=== PATIENT | female | born 1960 | race Asian ===

== ENCOUNTER 2024-09-13 15:56 | Outpatient (REF) | payer OTHER, SELFPAY ==
--- NOTE | ~2024-09-13 | XR_ITS ---
EXAMINATION: XR SHOULDER, RIGHT CLINICAL INFORMATION: right shoulder pain COMPARISON: None available. TECHNIQUE: AP external rotation, Grashey, scapular Y, and axillary views of the right shoulder. FINDINGS: AC joint is intact and not degenerated. Glenohumeral joint is intact. There is a stellate high attenuating lesion centrally in the glenoid consistent with a benign bone island. No degenerative changes present. XR/XR shoulder RT min 2V IMPRESSION: Unremarkable right shoulder. Electronically signed by: Bernard Medina MD 09/13/2024 04:45 PM EDT
--- NOTE | ~2024-09-13 | XR_ITS ---
Exam: 4 view bilateral knees TECHNIQUE: AP standing, AP tunnel, lateral, and sunrise view lower extremity joint x-rays INDICATION: Osteoarthritis Prior: None FINDINGS: RIGHT KNEE: There is mild to moderate narrowing of the medial joint space. There is no soft tissue desiccation. There are moderate osteophytes along the medial joint line. There is lateral tilt of patella. There is a large osteophyte bulging of the medial trochlea. There is no joint effusion. LEFT KNEE: There is mild to moderate narrowing of the medial joint space. There is no soft tissue desiccation. There are moderate osteophytes along the medial joint line. There is lateral tilt of patella. There is a large osteophyte bulging of the medial trochlea. There is no joint effusion. XR/XR Knee Robbie 4V IMPRESSION: Medial compartment osteoarthritis with mild to moderate joint space narrowing, bilateral. Lateral patellar tilt, bilateral. Correlate for signs and symptoms of excessive lateral pressure syndrome (ELPS). Electronically signed by: Bernard Medina MD 09/13/2024 04:48 PM EDT
== END 2024-09-13 15:57 | disposition home or self-care (01) ==
LOC: HO.XRAY 15:56
PROVIDERS: PCP Internal Medicine; Visit Provider Internal Medicine
DX: M17.0 Bilateral primary osteoarthritis of knee (principal)
CPT/HCPCS: 73030; 73564

== ENCOUNTER → 2024-09-13 16:30 | Outpatient (BNV) | payer OTHER, SELFPAY | PROVIDERS: PCP Internal Medicine; Visit Provider Radiology Diagnostic Radiology | DX: M17.0 Bilateral primary osteoarthritis of knee (principal); M25.511 Pain in right shoulder | CPT/HCPCS: 73030; 73564 ==

== ENCOUNTER 2024-11-08 11:12 | Outpatient (AMB) | payer OTHER, SELFPAY ==
--- NOTE | 2024-11-08 11:16 | MHC.OFFVIS ---
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 She describes her knee pains as achy in nature. She denies any locking or giving way. She is due to start formal physical therapy over the next week. Time Clock Mechanic Required: Yes Time Clock Mechanic Services: Time Clock Mechanic Offered & Declined Time Clock Mechanic Name: Daughter In Law. Lashell Allergies No Known Allergies Allergy (Verified 11/08/24 11:22) Medication List - Last Reconciled 11/08/24 by Riley Mendez MD Unobtainable Physical Exam Vital Signs: BMI result Body Mass Index 30.2 Const Other: Well-nourished well-developed very friendly female awake alert and oriented x3 in no acute distress Extrem Other: Bilateral knee examination shows minimal effusions, mild crepitus with range of motion, no instability Results Reviewed Results Reviewed: X-rays of the patient's bilateral knee show mild diffuse joint space narrowing, no acute bony abnormalities Assessment & Plan Assessment & Plan (1) Degenerative arthritis of knee, bilateral: Code(s): M17.0 - Bilateral primary osteoarthritis of knee Category: Medical Plan Ms. Salguero presents with intermittent bilateral knee pain due to early degenerative joint disease. I had a lengthy discussion with the patient regarding the treatment options. At this point the patient's symptoms are tolerable to her. We will hold off on a cortisone injection. She will follow up with me on an as-needed basis should she not get significant improvement from physical therapy. Feel free to call me at any time should questions regarding her orthopedic management arise. Thank you very much for asking me to see this very friendly patient. I spent 20 minutes in reviewing the patient's records and imaging studies, seeing the patient and documenting in the medical record. Coding Level of Care Code New Pt Level 3 (60230) Complex EM visit Add On G2211 Diagnoses Degenerative arthritis of knee, bilateral M17.0
[2024-11-08 11:21] VITALS: BMI 30.2
== END 2024-11-08 11:38 | disposition home or self-care (01) ==
LOC: HO.HOS 11:13
PROVIDERS: PCP Internal Medicine; Visit Provider Orthopaedic Surgery
DX: M17.0 Bilateral primary osteoarthritis of knee (principal)
CPT/HCPCS: 99203; G2211

== ENCOUNTER → 2024-11-08 11:12 | Outpatient (BNVA) | payer OTHER, SELFPAY | PROVIDERS: PCP Internal Medicine; Visit Provider Orthopaedic Surgery | DX: M25.562 Pain in left knee (principal); M25.561 Pain in right knee; M17.0 Bilateral primary osteoarthritis of knee | CPT/HCPCS: 99202 ==